=== PATIENT | female | born 1985 | race American Indian/Alaskan Native ===

== ENCOUNTER 2017-10-06 23:30 | Emergency (ER) | payer SELFPAY ==
[2017-10-06 23:48] VITALS: BP 109/43
[2017-10-06] MEDS ORDERED: BENADRYL ONE (23:50)
[2017-10-06] MEDS ORDERED: DECADRON ONE (23:50)
[2017-10-06] MEDS ORDERED: PEPCID IV ONE (23:51)
[2017-10-07] MEDS ORDERED: PEPCID IV ONE (00:11)
[2017-10-07] MEDS ORDERED: BENADRYL IV ONE (00:11)
[2017-10-07] MEDS ORDERED: DECADRON IV ONE (00:11)
[2017-10-07] MEDS ORDERED: MOTRIN PO ONE ×2 (01:25→02:26)
== END 2017-10-07 01:30 | disposition left against medical advice (07) ==
LOC: ED 23:30
DX: R21 Rash and other nonspecific skin eruption (principal); Z53.21 Procedure and treatment not carried out due to patient leaving prior to being seen by health care provider
CPT/HCPCS: J1100; J1200